=== PATIENT | female | born 1950 | race Caucasian/White ===

== ENCOUNTER 2022-09-06 12:14 | Emergency (ER) | payer MEDICARE ==
[~2022-09-06] VITALS: Ht 157.5 cm; Wt 96.4 kg
[~2022-09-06 12:14] MED LIST: PROC-8 PO
[2022-09-06 13:06] LABS: BASOPHILS # (AUTO) 0.1 X10'3 (0-0.2); BASOPHILS % (AUTO) 1.5 % (0-1); EOSINOPHILS # (AUTO) 0.3 X10'3 (0-0.9); EOSINOPHILS % (AUTO) 4.1 % (0-6); HEMATOCRIT 38.3 % (35.0-45.0); HEMOGLOBIN 12.9 g/dl (12.0-16.0); LYMPHOCYTES % (AUTO) 26.5 % (21-51); MEAN CORPUSCULAR HEMOGLOBIN 30.1 PG (27.0-31.0); MEAN CORPUSCULAR HGB CONC 33.8 g/dL (33.0-36.5); MEAN PLATELET VOLUME 8.6 FL (7.4-10.4); MONOCYTES # (AUTO) 0.6 X10'3 (0-0.9); NEUTROPHILS # (AUTO) 4.6 X10'3 (1.8-7.7); NEUTROPHILS % (AUTO) 59.9 % (42-75); PLATELET COUNT 199 X10'3 (140-440); RED CELL DISTRIBUTION WIDTH 13.8 % (11.5-14.5); WHITE BLOOD COUNT 7.7 X10'3 (4.5-11.0)
[2022-09-06 13:25] LABS: ALANINE AMINOTRANSFERASE 37 U/L (12-78); ALBUMIN 3.7 G/DL (3.4-5.0); ALBUMIN/GLOBULIN RATIO 1.2 (1.1-1.5); ALKALINE PHOSPHATASE 64 IU/L (46-116); ANION GAP 8 (8-16); ASPARTATE AMINO TRANSFERASE 14 U/L (10-37); BILIRUBIN,TOTAL 0.8 MG/DL (0.1-1.0); BLOOD UREA NITROGEN 43 MG/DL (7-18); BUN/CREATININE RATIO 37.4 (6.6-38.0); CALCIUM 9.4 MG/DL (8.5-10.1); CHLORIDE 103 MMOL/L (99-107); CREATININE 1.15 MG/DL (0.40-0.90); GLUCOSE 193 MG/DL (70-104); POTASSIUM 4.3 MMOL/L (3.5-5.1); SODIUM 138 MMOL/L (135-145); TOTAL CARBON DIOXIDE 26.9 MMOL/L (24-32); TOTAL PROTEIN 6.7 G/DL (6.4-8.2); eGFR 47 ML/MIN
[2022-09-06] MEDS ORDERED: CEPH-585 PO (14:29)
[2022-09-06] MEDS ORDERED: FURO-150 PO (14:29)
[2022-09-06] MEDS ORDERED: POTA8TAB69 PO (14:29)
[2022-09-06 15:07] VITALS: BP 161/75
--- NOTE | 2022-09-09 09:14 | NUR ---
NEW PRESCRIPTION FOR BACTRIM WAS WRITTEN PER DR. BARNETT, SINCE KEFLEX IS NOT EFFECTIVE FOR THE CULTURE/SENSITIVITY. PATIENT WAS NOTIFIED OF MEDICATION CHANGE AND [facility] CALLED FOR NEW PRESCRIPTION.
== END 2022-09-06 15:13 | disposition home or self-care (01) ==
LOC: ER 12:15
DX: R22.43 Localized swelling, mass and lump, lower limb, bilateral (principal); L03.116 Cellulitis of left lower limb; L03.115 Cellulitis of right lower limb; I87.2 Venous insufficiency (chronic) (peripheral); B35.1 Tinea unguium; E11.9 Type 2 diabetes mellitus without complications; Z88.5 Allergy status to narcotic agent
CPT/HCPCS: 36415; 80053; 83880; 85025; 87070; 87077; 87186; 99283

== ENCOUNTER 2025-03-15 11:57 | Inpatient (IN) | payer MEDICARE ==
[~2025-03-15] VITALS: Ht 157.5 cm; Wt 96.1 kg
[~2025-03-15 11:57] MED LIST changes: +AMLO10TA PO; +ATOR20TA66 PO; +LABE100T8 PO; +LATA2.5D14 EACHEYE; +LOSA50TA64 PO; +PRAM1TAB6 PO; +PRED5DRO23
--- NOTE | 2025-03-15 12:55 | ELECTROCARDIOGRAPH REPORT ---
[facility] Test Date: 2025-03-15 Test Time: 12:53:22 Pat Name: ZHEN WHITMORE Department: [facility] Patient ID: [facility]-[id number] Room: [place] [id number] Gender: F Health Information Provider: : 1950 Requested By: JOSHUA BURTON Order Number: [id number] Reading MD: Dr. Ronni Sheets Measurements Intervals [place] Rate: 70 P: 21 AK: 140 QRS: 62 QRSD: 93 T: 59 QT: 413 QTc: 446 Interpretive Statements Sinus rhythm Electronically Signed On 03-23-2025 20:07:[address] Ronni Sheets Please click the below link to view image of tracing.
--- NOTE | 2025-03-15 13:05 | Physician Documentation ---
History of Present Illness ~ Chief Complaint: Extremity Swelling Stated Complaint: LEG SWELLING Time Seen by MD: 13:02 Primary Medical Doctor: LEYLA OWENS This is a 74-year-old female with a history of CHF presenting with worsening lower and upper extremity swelling that has been ongoing for the past several weeks. Patient was sent here from primary care clinic due to this. Medication Reconciliation Allergies: Coded Allergies: naproxen (Verified Allergy, Unknown, 02/09/25) Scheduled Amlodipine Besylate (Amlodipine Besylate), 1 TAB PO DAILY, (Reported) Aspirin (Aspir 81), 1 TAB PO DAILY, (Reported) Atorvastatin Calcium* (Lipitor*), 1 TAB PO DAILY, (Reported) Brinzolamide/Brimonidine Tart (Simbrinza 1%-0.2% Eye Drop), 1 DROP EACHEYE Q12H, (Reported) Cefdinir* (Cefdinir*), 1 CAP PO Q12H Empagliflozin (Jardiance), 10 MG PO DAILY Ferrous Sulfate (Ferrous Sulfate), 1 TAB PO Q12H Furosemide (Furosemide), 40 TAB PO BID Insulin Glargine,Hum.rec.anlog* (Lantus*), 15 UNITS SQ HS Lactobacillus Rhamnosus (Culturelle), 1 CAP PO DAILY Linagliptin (Tradjenta), 1 TAB PO DAILY Pramipexole Di-Hcl (Pramipexole Dihydrochloride), 2 TAB PO HS, (Reported) Spironolactone (Spironolactone), 25 MG PO DAILY Tobramycin/Dexamethasone (Tobramycin-Dexameth Ophth Susp), 1 DROP EACHEYE HS, (Reported) Valsartan (Valsartan), 1 TAB PO DAILY, (Reported) Miscellaneous Medications Latanoprost (Latanoprost), EACHEYE, (Reported) Discontinued Medications Amlodipine Besylate (Amlodipine Besylate), 1 TAB PO DAILY Discontinued Reason: Other Atorvastatin Calcium (Atorvastatin Calcium), 20 MG PO DAILY Discontinued Reason: Other Chlorthalidone (Chlorthalidone), 1 TAB PO DAILY, (Reported) Labetalol Hcl (Labetalol Hcl), 100 MG PO BID Discontinued Reason: patient no longer taking Losartan Potassium (Losartan Potassium), 50 MG PO DAILY Discontinued Reason: Other Prednisolone Acetate/Pf (Prednisolone Acet 1% Eye Drop), (Reported) Discontinued Reason: Other Prochlorperazine Maleate (Compazine), 10 MG PO Q6H PRN for nausea/vomiting Discontinued Reason: patient no longer taking Past Medical History Past Medical History: Diabetes Past Surgical History: no surgical history, noncontributory Other Past Surgical History: Glaucoma surgeries Alcohol Use: None Drug Use: none Lives with: Spouse Lives In: Home Physical Exam Vital Signs: Temperature: 97.2, Source: Temporal, Heart Rate: 71, Respiratory Rate: 18, BP: 151/58, Pulse Oximetry: 94, Weight: 111.360 Progress Results/Orders Results/Orders Orders - YOMAIRA JARRELL MD Culture Blood (03/15/25 13:04) Page Hospitalist (03/15/25 15:38) Fill Out Med Reconciliation (03/15/25 15:38) Completed Orders - YOMAIRA JARRELL MD CK (03/15/25 13:04) CKMB (03/15/25 13:04) Pt Inr (03/15/25 13:04) PTT (03/15/25 13:04) MG (03/15/25 13:04) CMP (03/15/25 13:04) Lacticsepsis (03/15/25 13:04) Furosemide Inj (Lasix Inj) (03/15/25 14:15) Furosemide 40mg Inj (Lasix Inj) (03/15/25 14:15) Ua W/Microscopic, Cult If Ind (03/15/25 19:04) Vital Signs 03/15/25 03/15/25 03/15/25 12:19 13:12 14:50 Temp 97.2 Pulse 71 67 Resp 18 18 18 B/P (MAP) 151/58 149/67 (94) 164/73 (103) Pulse Ox 94 96 96 Laboratory Tests Test 03/15/25 12:45 03/15/25 13:23 03/15/25 15:00 Prothrombin Time 10.9 INR International Normalized Ratio 1.1 Activated Partial Thromboplast Time 30 Coagulation Comments Troponin I High Sensitivity 12 12 White Blood Count 8.1 Red Blood Count 3.59 L Hemoglobin 10.3 L Hematocrit 31.1 L Mean Corpuscular Volume 86.8 Mean Corpuscular Hemoglobin 28.8 Mean Corpuscular Hemoglobin Concent 33.2 Red Cell Distribution Width 15.1 H Platelet Count 315 Mean Platelet Volume 8.4 Neutrophils (%) (Auto) 65.7 Lymphocytes (%) (Auto) 15.8 L Monocytes (%) (Auto) 10.4 Eosinophils (%) (Auto) 5.2 Basophils (%) (Auto) 2.1 H Neutrophils # (Auto) 5.3 Lymphocytes # (Auto) 1.3 Monocytes # (Auto) 0.8 Eosinophils # (Auto) 0.4 Basophils # (Auto) 0.2 CBC Comment Sodium Level 140 Potassium Level 4.6 Chloride Level 109 H Carbon Dioxide Level 23.2 L Anion Gap 8 Blood Urea Nitrogen 43 H Creatinine 1.78 H Estimated GFR/1.73 m2 28 BUN/Creatinine Ratio 24.2 H Glucose Level 240 H Lactic Acid Level 0.9 Calcium Level 8.4 L Magnesium Level 2.1 Total Bilirubin 0.7 Aspartate Amino Transf (AST/SGOT) 25 Alanine Aminotransferase (ALT/SGPT) 61 Alkaline Phosphatase 100 Total Creatine Kinase 111 Creatine Kinase MB 2.9 Creatine Kinase MB Relative Index 2.6 H Pro-B-Type Natriuretic Peptide 1902 H Total Protein 6.2 L Albumin 2.9 L Globulin 3.3 Albumin/Globulin Ratio 0.9 L Procalcitonin < 0.05 Adrenocorticotropic Hormone 17.7 Chemistry Comments Troponin I High Sens Percent Delta 0 Troponin I Hi Sens Absolute Change 0 Microbiology Date/Time Source Procedure Growth Status 03/15/25 13:23 Blood Iv Start Blood Culture - Preliminary NO GROWTH AFTER 3 DAYS Resulted EKG/XRAY/CT/US/VASC/MRI EKG : Additional Comment EKG as interpreted by ED MD indicating normal sinus rhythm with a rate of 70 beats per minute, normal axis, no ischemia Chest X-Ray : Additional Comments CHEST RADIOGRAPH Indication: CP Technique: Single frontal view of the chest was obtained Comparison: None FINDINGS: Lines and Tubes: None Lungs: No focal consolidation. Mild interstitial prominence. Pleura: No effusion. No pneumothorax. Cardiomediastinal contours: Mild cardiomegaly with air Mild atherosclerotic calcification and uncoiling of the aorta. Bones: No acute osseous abnormality. IMPRESSION: Mild cardiomegaly with mild pulmonary vascular congestion. Medical Decision Making Additional Infomation 74-year-old female presenting with worsening fluid retention leading to anasarca due to worsening renal failure, as well as congestive heart failure. Add itionally, she is hyper glycemic in the setting of poorly controlled diabetes mellitus. The patient is noncompliant with her medication's and would benefit from admission to hospital. Patient was given 40 mg of IV furosemide in the ED. She was admitted to the hospitalist team. Departure Disposition: ADMITTED INPATIENT Admitted to Inpatient Unit: to hospitalist Admission Level of Care: Med/Surg with Tele Impression: Primary Impression: Anasarca Additional Impressions: CHF (congestive heart failure) Chronic renal failure Uncontrolled diabetes mellitus Hyperglycemia Referrals: NO PRIMARY CARE PROVIDER (PCP) Prescriptions Lactobacillus Rhamnosus (Culturelle) 10 Billion Cell Capsule 1 CAP PO DAILY for 30 Days, #30 CAP 0 Refills Prov: ORTEGA GRANADOSV, RES 03/18/25 Ferrous Sulfate (Ferrous Sulfate) 324 Mg (65 Mg Iron) Tablet.dr 1 TAB PO Q12H for 30 Days, #60 TAB 0 Refills Prov: ORTEGA GRANADOSV, RES 03/18/25 Linagliptin (Tradjenta) 5 Mg Tablet 1 TAB PO DAILY for 30 Days, #30 TAB 0 Refills Prov: ORTEGA GRANADOSV, RES 03/18/25 Insulin Glargine,Hum.rec.anlog* (Lantus*) 100 Unit/1 Ml Vial 15 UNITS SQ HS for 30 Days, #1 VIAL Prov: SHANE GRANADOS, RES 03/18/25 Spironolactone (Spironolactone) 25 Mg Tablet 25 MG PO DAILY for 30 Days, #30 TAB Prov: ORTEGA GRANADOSV, RES 03/18/25 Empagliflozin (Jardiance) 10 Mg Tablet 10 MG PO DAILY for 30 Days, #30 TAB Prov: LILAAPAEVGENY AparicioSHANE, RES 03/18/25 Cefdinir* (Cefdinir*) 300 Mg Capsule 1 CAP PO Q12H for 30 Days, #60 CAP Prov: ORTEGA GRANADOSV, RES 03/18/25 Furosemide (Furosemide) 20 Mg Tablet 40 TAB PO BID for 30 Days, #120 TAB 0 Refills Prov: ORTEGA GRANADOSV, RES 03/18/25 Signature Scribe Signature: 1 Attestation: 1 YOMAIRA JARRELL MD Mar 15, 2025 13:05
--- NOTE | 2025-03-15 13:16 | RADIOLOGY REPORT ---
CHEST RADIOGRAPH Indication: CP Technique: Single frontal view of the chest was obtained Comparison: None FINDINGS: Lines and Tubes: None Lungs: No focal consolidation. Mild interstitial prominence. Pleura: No effusion. No pneumothorax. Cardiomediastinal contours: Mild cardiomegaly with air Mild atherosclerotic calcification and uncoili ng of the aorta. Bones: No acute osseous abnormality. IMPRESSION: Mild cardiomegaly with mild pulmonary vascular congestion.
[2025-03-15 13:29] LABS: APTT 30 SECONDS (22-32); INR 1.1 INR
[2025-03-15 13:38] LABS: MEAN PLATELET VOLUME 8.4 FL (7.4-10.4); RED CELL DISTRIBUTION WIDTH 15.1 % (11.5-14.5)
[2025-03-15 13:47] LABS: CREATININE 1.78 MG/DL (0.40-0.90); TOTAL CARBON DIOXIDE 23.2 MMOL/L (24-32); eCRCL 23 ML/MIN; eGFR 28 ML/MIN
[2025-03-15 13:58] LABS: CREATINE KINASE MB 2.9 ng/ml (0.3-3.6); PRO BRAIN NATRIURETIC PEPTIDE 1902 PG/ML (0-125)
[2025-03-15] MEDS ORDERED: ATOR20TA PO (14:14)
[2025-03-15] MEDS ORDERED: ASPI-611 PO (14:14)
[2025-03-15] MEDS ORDERED: BRIN8DRO2 EACHEYE (14:14)
[2025-03-15] MEDS ORDERED: AMLO10TA13 PO (14:14)
[2025-03-15] MEDS ORDERED: CHLO25TA10 PO (14:14)
[2025-03-15] MEDS ORDERED: furosemide 10 MG/1 ML 10ml inj IV ONE (14:15)
[2025-03-15] MEDS ORDERED: TOBR5DRO7 EACHEYE (14:17)
[2025-03-15] MEDS ORDERED: VALS320T17 PO (14:18)
[2025-03-15] MEDS ORDERED: potassium Cl 40MEQ/1/2NS 520ml 520 ML IV PRN (17:15)
[2025-03-15] MEDS ORDERED: ondansetron/PF 4mg/2ml inj IV PRN (17:15)
[2025-03-15] MEDS ORDERED: mag hydrox/Alum hydrox/simeth 30ml oral suspension PO PRN (17:15)
[2025-03-15] MEDS ORDERED: magnesium Cl slow-release 64mg tablet PO PRN (17:15)
[2025-03-15] MEDS ORDERED: magnesium sulf-water 2g/50mL 50 ML IV PRN (17:15)
[2025-03-15] MEDS ORDERED: magnesium hydroxide 30ml (MOM) UD suspension PO PRN (17:15)
[2025-03-15] MEDS ORDERED: magnesium sulf-water 4G/100mL 100 ML IV PRN (17:15)
[2025-03-15] MEDS ORDERED: potassium Cl 20 mEq SR tablet PO PRN ×2 (17:15)
[2025-03-15] MEDS ORDERED: glucagon, human recombinant 1mg kit SUBCUT PRN (17:25)
[2025-03-15] MEDS ORDERED: dextrose 50%-water 50ml dispensing syringe IV PRN ×2 (17:25)
[2025-03-15] MEDS ORDERED: DEXTROSE 15 GM of carb/4 tabs (each vial/BOTTLE has 4 tablets) PO PRN ×2 (17:25)
[2025-03-15] MEDS: furosemide 10 MG/1 ML 10ml inj IV SCH (17:25)
--- NOTE | 2025-03-15 18:10 | RADIOLOGY REPORT ---
Indication: anasarca and renal; abnormalities Technique: CT axial images of the abdomen and pelvis are obtained with intravenous contrast. Coronal and sagittal reformats were obtained. Radiation Dose Information: CTDI volume is 34 mGy. Dose-length product is 1890 mGy*cm Comparison: None FINDINGS: The lung bases small bilateral pleural effusions, [id number]. Bibasilar atelectasis/cons olidation. Adrenal glands, spleen, pancreas and liver unremarkable in shape. Cholelithiasis. The kidneys demonstrate no hydronephrosis. Punctate nonobstructing right renal calculi up to 3 mm an d left renal calculi up to 2 mm. Stomach is moderately distended. Small bowel loops are normal in caliber. Colonic diverticular disease. Moderate volume stool in the colon. No secondary signs for appendicitis . Mesenteric edema. Abdominal aortic atherosclerotic disease. Bladder is distended. Presacral edema. Soft tissue edema / anasarca. [id number]-xb-oaldzcfr thoracolumbar degenerative disc disease. IMPRESSION: Soft tissue edema / anasarca. Small bilateral pleural effusions, [id number]-[id number]-exgf-right. Bibasilar atelectasis/consolidation. Punctate nonobstructing bilateral renal calculi. Cholelithiasis. Other findings as described.
--- NOTE | 2025-03-15 18:13 | HISTORY AND PHYSICAL-Residence ---
History & Physical Providers to CC Resident Creating Document: SHANE GRANADOS RES ~ History of Present Illness Primary Medical Doctor: LEYLA Reason for Admit\Complaint: Lower bilateral extremity edema History of Present Illness The patient is an elderly female with a complex medical history including chronic bilateral lower extremity edema, type 2 diabetes mellitus, chronic kidney disease, and cerebrovascular disease, who presents with progressive swelling of her lower and upper extremities and increasing shortness of breath. She reports that her lower extremity edema has been present for over two years but has significantly worsened in recent months, now extending up to her knees and involving her upper extremities as well. The legs are warm, erythematous, and have developed blistering. She notes a weight gain of approximately 30 pounds over the last 90 days. Her home nurse advised her to consult her primary care physician, who recommended inpatient diuresis due to concern for volume overload. She additionally reports worsening dyspnea over the past three weeks, particularly on exertion. She endorses orthopnea and paroxysmal nocturnal dyspnea but denies chest pain or fever. Despite the extent of her symptoms, she has not been formally diagnosed with heart failure. She follows with pbx technician Dr. Jaramillo and is scheduled for a right carotid artery stent placement. She was previously hospitalized one month ago for evaluation of acute kidney injury and stroke-like symptoms. During that admission, she was evaluated by outpatient science professor Dr. Foley, and was followed outpatient who noted improvement in renal function. Laboratory data on admission shows a hemoglobin of 10.3 (down from 12.4), BUN 43, creatinine 1.78, glucose 240, and A1c 9.9. BNP has improved from 3000 to 1902. A chest X-ray demonstrates cardiomegaly and vascular congestion. A recent echocardiogram revealed preserved ejection fraction (EF 6570%). Lower extremity arterial Doppler revealed significant atherosclerotic disease with 75% stenosis in the right common femoral artery and bilateral involvement of superficial femoral and popliteal segments. Carotid duplex ultrasound showed 70% stenosis of the right internal carotid artery, and MRI/MRA of the head showed diminished flow in the right MCA and bilateral SEASONAL RECRUITER territories. On exam, she has severe, non-pitting bilateral lower extremity edema with evidence of weeping fluid and blistering, suggesting advanced venous stasis or lymphedema, possibly with superimposed cellulitis. PCP: Cardiology: Dr. Jaramillo Marketing Programs Specialist: Have an appointment on April 04 Nephrology: Dr. Foley Lives at home with her Ambulates independently Allergies: Coded Allergies: naproxen (Verified Allergy, Unknown, 02/09/25) Home Medications Home Medications Active Reported Valsartan 320 Mg Tablet 1 Tab PO DAILY Tobramycin-Dexameth Ophth Susp (Tobramycin/Dexamethasone) 0.3 %-0.1 % Drops.susp 1 Drop EACHEYE HS Chlorthalidone 25 Mg Tablet 1 Tab PO DAILY Aspir 81 (Aspirin) 81 Mg Tablet.dr 1 Tab PO DAILY Amlodipine Besylate 10 Mg Tablet 1 Tab PO DAILY Simbrinza 1%-0.2% Eye Drop (Brinzolamide/Brimonidine Tart) 1 %-0.2 % Drops.susp 1 Drop EACHEYE Q12H Lipitor* (Atorvastatin Calcium) 20 Mg Tablet 1 Tab PO DAILY Latanoprost 0.005 % Drops EACHEYE Pramipexole Dihydrochloride (Pramipexole Di-Hcl) 1 Mg Tablet 2 Tab PO HS Past Medical History Past Medical History Coronary artery disease Carotid artery stenosis Asthma Chronic lymphedema Possible congestive heart failure Peripheral artery disease Pyelonephritis Septic abortions Preeclampsia Glaucoma Past Surgical History Surgical History Comment Foot surgery 60 years ago Tonsillectomy Nine eye surgeries for glaucoma Past Social History Social History Comment Denied smoking and illicit drug abuse, very occasional alcohol approximately 1-2 drinks a year Smoking: Non-Smoker Alcohol Use: None Drug Use: None Lives with: Spouse Lives In: Home ROS ROS Reviewed in full. All negative except for pertinent positive HPI. Exam Vitals: Vital Signs Date Time Temp Pulse Resp B/P (MAP) Pulse Ox O2 Delivery O2 Flow Rate FiO2 03/15/25 17:18 77 18 163/82 (109) 93 03/15/25 12:19 97.2 General: Awake , alert, and oriented x4, resting comfortably in the bed, in no acute distress HEENT: Atraumatic, normocephalic, EOMI, anicteric sclera ; pink conjunctiva Neck: Trachea midline. Supple, full range of motion, no JVD Cardiac: Regular rhythm, regular rate with no murmurs all over the precordium. Respiratory: Equal breath sounds bilaterally, crackles at the basilar regions Gastrointestinal: Abdomen symmetric, non-distended, soft, non-tender, normal bowel sounds x4 quadrant, normoactive, no hepatosplenomegaly Musculoskeletal: Right and left lower extremities: Significant nonpitting pedal edema extending up to knee joint, severe erythema, oozing fluid and blisters also a wound below the right greater toe Significant enema of the upper extremities Neurological: Speech is clear, alert, and oriented x 4. No motor or sensory deficit, deep tendon reflexes normal, cerebellar intact. Cranial nerves II-XII intact. Skin: Warm and dry Diagnostic Data Last Recorded Lab Results: 03/15/25 1323 03/15/25 1323 Diagnostic Data: Laboratory Tests Test 03/15/25 12:45 Prothrombin Time 10.9 SECONDS (9.0-12.0) INR International Normalized Ratio 1.1 INR Activated Partial Thromboplast Time 30 SECONDS (22-32) Coagulation Comments Advance Care Planning Advanced Care plannin - 30 Minutes Additional Plan 1. Volume Overload with Severe bilateral lower extremity lymphedema Shortness of breath Possible Venous insufficiency Chronic progressive edema now involving both lower and upper extremities with recent 30 lb weight gain. Exam shows severe non-pitting edema with weeping fluid, likely due to volume overload and possible lymphedema or venous insufficiency. Associated with worsening dyspnea, orthopnea, and PND. Plan: IV furosemide bolus 80 mg given in the ED Ordered IV Lasix 60 mg b.i.d. from tomorrow, monitor blood pressures Transition to drip if no improvement further Venous ultrasound ordered for ruling out venous insufficiency Strict I/O, daily weights Monitor renal function, electrolytes Fluid restriction, low-sodium diet Elevation of legs, compression wraps (after ruling out active cellulitis) Wound care consult 2. Bilateral Lower Extremity Cellulitis Lower extremities are warm, erythematous, with weeping skin and blisteringconcerning for superimposed cellulitis Plan: Started IV cefazolin 1 g q8h Monitor WBC, temp, and skin changes daily Procalcitonin ordered Blood cultures ordered Wound care consult 3. Shortness of Breath and Orthopnea CHF vs Volume Overload Possible acute exacerbation of congestive heart failure with preserved ejection fraction NYHA Class III, AHA/ACC Stage C Likely diastolic dysfunction with preserved EF (6570%), elevated BNP (trending down), and pulmonary congestion on CXR Plan: Continue IV diuresis Added Jardiance 10 mg daily, we will initiate spironolactone based on electrolytes tomorrow Monitor oxygen status and respiratory exam 4. Chronic Kidney Disease with Recent PATRICK Creatinine 1.78, improved from previous PATRICK Plan: Daily BMP, monitor for pre-renal worsening with diuresis Avoid nephrotoxic drugs Dr. Foley to see the patient tomorrow 5. Type 2 Diabetes Mellitus Poorly Controlled A1c 9.9, glucose 240 Plan: Basal-bolus insulin regimen with Lantus 25 units and Humalog 15 units Monitor blood glucose QID Adjust based on inpatient needs 6. Normocytic Normochromic Anemia Likely Chronic Disease or Volume Dilutional Hb 10.3 (down from 12.4), likely multifactorial from CKD, volume overload Plan: Monitor CBC daily Iron panel, B12, folate pending No transfusion unless Hb <7 or symptomatic 7. Peripheral Arterial Disease (PAD) Arterial US shows 75% stenosis in right common femoral and bilateral disease Plan: Continue aspirin, statin Vascular follow-up for management tomorrow Monitor for ischemic symptoms Foot care education 8. 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 Hypertension Continue home antihypertensives amlodipine 10 mg po daily, chlorthalidone 25 mg p.o. daily, valsartan 320 mg p.o. daily Monitor blood pressure closely during volume removal Adjust based on volume status and renal function 11. Glaucoma: Continue home medications 12. Severe Obesity Possibel GLENN Outpatient follow up Code Status: Full code DVT Prophylaxis: Heparin SQ Line/tubes: P IV Nutrition: Carb controlled heart healthy diet PT: Ordered Prognosis: Guarded Disposition: Admit to PCU with the tele monitoring Shane Granados MD Internal Medicine Resident, PGY-2 Date of Service: Mar 15, 2025 Billing Provider: NEGRA KERN MD,SHANE, RES Mar 15, 2025 18:13
[2025-03-15 19:22] LABS: LEUKOCYTE ESTERASE ,URINE SMALL (Neg); NITRITES, URINE NEGATIVE (Neg); OCCULT BLOOD,URINE TRACE-INTACT (Neg)
[2025-03-15 19:32] LABS: UA COLLECTION TYPE NON-SPECIFIED
[2025-03-15 19:33] LABS: SQUAMOUS EPITHELIAL CELL,UR FEW /LPF (FEW)
[2025-03-15 19:34] LABS: WBC CLUMPS,URINE FEW /HPF (NEGATIVE)
[2025-03-15 19:42] LABS: % IRON SATURATION 11 % (11-46)
[2025-03-15] MEDS: ceFAZolin 2gm/dext,iso 50mL 50 ML IV SCH (19:42)
[2025-03-15] MEDS: docusate sod 100mg capsule PO SCH (20:00)
[2025-03-15] MEDS: K and/or MAG REPLACEMENT MC SCH (20:00)
[2025-03-15] MEDS: INSULIN LISPRO 100 UNIT/ML INSULN.PEN MULTI-DOSE SQ SCH ×2 (20:10→20:36)
[2025-03-15] MEDS: heparin, porcine 5000 units/ml vial SQ SCH (20:23)
[2025-03-15] MEDS: insulin glargine (Lantus) pen - multi-dose SQ SCH (20:39)
[2025-03-15 21:00] VITALS: RESP 24; O2SAT 93
[2025-03-15] MEDS: brimonidine 0.2% 5 ML ophthalmic drops EACHEYE SCH (21:22)
[2025-03-15] MEDS: dorzolamide 2% ophthalmic drops 10ml EACHEYE SCH (21:22)
[2025-03-15 22:00] VITALS: BP 155/72; PULSE 84; RESP 20; TEMP 97.1; O2SAT 92
[2025-03-16 02:00] VITALS: BP 172/67; PULSE 64; RESP 18; TEMP 97.7; O2SAT 96
[2025-03-16 05:55] LABS: MEAN PLATELET VOLUME 8.2 FL (7.4-10.4); RED CELL DISTRIBUTION WIDTH 15.3 % (11.5-14.5)
[2025-03-16 06:06] LABS: CHOL/HDL RATIO 1.8 (0.00-4.99); CREATININE 1.77 MG/DL (0.40-0.90); LDL CHOLESTEROL 32 MG/DL (50-100); TOTAL CARBON DIOXIDE 24.3 MMOL/L (24-32); eCRCL 23 ML/MIN; eGFR 28 ML/MIN
[2025-03-16 07:00] VITALS: BP 150/69; PULSE 72; RESP 18; TEMP 97.1; O2SAT 96
[2025-03-16 08:00] VITALS: RESP 24; O2SAT 93
[2025-03-16] MEDS: EMPAGLIFLOZIN 10 MG TABLET PO SCH (08:06)
[2025-03-16] MEDS: aspirin 81mg, enteric-coated 1 TAB TABLET.DR PO SCH (08:07)
[2025-03-16] MEDS: furosemide 10 MG/1 ML 10ml inj IV SCH (08:24)
--- NOTE | 2025-03-16 10:26 | CONSULTATION REPORT - RESIDENT ---
Consult Providers to CC Resident Creating Document: ROBERTMARCOSKIM RES History of Present Illness Primary Medical Doctor: Shayy Mejia Reason for Admit\\Complaint: Anasarca History of Present Illness This is a 74-year-old female patient with a past medical history of morbid obesity, hypothyroidism, hypertension, heart failure with preserved ejection fraction, right carotid artery stenosis (>70%) and symptomatic, and bilateral peripheral arterial disease presented to the hospital due to worsening anasarca. She was advised by her primary care provider to come into the hospital for inpatient diuresis. The patient was seen in the hospital about a month ago. That hospitalization was initiated secondary to the fact that she took paov-vie-rctmgfr weight loss pills called "Burnjauro" due to which she developed increased urinary frequency, leading to increased weakness and suffering a mechanical fall. She was admitted to the hospital and treated for PATRICK prerenal in etiology. She follows up with Dr. Foley outpatient, her renal function had remained at baseline. She has been suffering with bilateral lower extremity edema likely secondary to lymphedema over the last two years but progressive anasarca has worsened over the last one month. This is also associated with increasing fatigue. She reports no symptoms of diarrhea, vomiting, loss of appetite, frothing of the urine or hematuria. Allergies: Coded Allergies: naproxen (Verified Allergy, Unknown, 02/09/25) Home Medications Home Medications Active Reported Valsartan 320 Mg Tablet 1 Tab PO DAILY Tobramycin-Dexameth Ophth Susp (Tobramycin/Dexamethasone) 0.3 %-0.1 % Drops.susp 1 Drop EACHEYE HS Chlorthalidone 25 Mg Tablet 1 Tab PO DAILY Aspir 81 (Aspirin) 81 Mg Tablet.dr 1 Tab PO DAILY Amlodipine Besylate 10 Mg Tablet 1 Tab PO DAILY Simbrinza 1%-0.2% Eye Drop (Brinzolamide/Brimonidine Tart) 1 %-0.2 % Drops.susp 1 Drop EACHEYE Q12H Lipitor* (Atorvastatin Calcium) 20 Mg Tablet 1 Tab PO DAILY Latanoprost 0.005 % Drops EACHEYE Pramipexole Dihydrochloride (Pramipexole Di-Hcl) 1 Mg Tablet 2 Tab PO HS Past Medical History Past Medical History Bilateral lower extremity lymphedema Right carotid artery stenosis Hypothyroidism Hypertension CKD stage 4 Heart failure with preserved ejection fraction Past Surgical History Surgical History Comment Foot surgery 60 years ago Tonsillectomy Nine eye surgeries for glaucoma Past Social History Social History Comment Denies alcohol use, illicit drug abuse or smoking. Lives at home with the . Recently unable to ambulate on her own and requires assistance. ROS ROS As stated above in the HPI, otherwise all systems are reviewed and negative. Exam Vitals: Vital Signs Date Time Temp Pulse Resp B/P (MAP) Pulse Ox O2 Delivery O2 Flow Rate FiO2 03/16/25 08:07 72 03/16/25 02:00 97.7 18 172/67 (102) 96 Room Air General: General: Awake and Alert, no acute distress. Tired appearing HEENT: Conjunctiva pale, Sclera clear, Mucus Membranes moist. Resp: Unlabored. Lungs clear to auscultation bilaterally. Heart: Regular Rate and rhythm, normal S1 and S2 without murmur, rub or gallop. Abdomen: Soft and non tender no organomegaly Extremities: 4+ bilateral upper and lower extremity edema Skin: Warm and Dry. Excoriations of the bilateral lower extremities, erythematous suffering lower extremities extending from the ankle to the calf Diagnostic Data Last Recorded Lab Results: 03/16/2552303/16/25 05 Diagnostic Data: Laboratory Tests Test 03/15/25 12:45 Prothrombin Time 10.9 SECONDS (9.0-12.0) INR International Normalized Ratio 1.1 INR Activated Partial Thromboplast Time 30 SECONDS (22-32) Coagulation Comments Additional Plan 1. Anasarca: Possibly secondary to hypoalbuminemia Urine protein on 02/09/2025 was 3+. Spot urine protein at this time was trace Follow spot urine studies for UBC ID issues, we will consider 24 hour urine studies based on the above Nutrition consulted. Nepro protein shakes ordered. Heart failure secondary to preserved EF can also be considered; but normal RV function echocardiogram ProBNP downtrending. But, patient responding to diuretic therapy Continue IV Lasix, increased today to 80 mg b.i.d. Recommend discontinuing chlorthalidone Strict I&O monitoring. Negative fluid balance of 5 L yesterday Additionally, follow TSH, free T4 and ACTH levels 2. Right carotid artery stenosis: Greater than 70%, symptomatic Plan for RCA stenting by Dr. Jaramillo Continue to follow outpatient 3. Type 2 diabetes mellitus: ? Newly diagnosed Poorly controlled; A1c 9.9 No diabetic medications on board at home Jardiance added by primary team Continue insulin regimen in-hospital Consider discharging on appropriate regimen 4. CKD stage 4: Baseline 1.7-1.8 Closely monitor BMP Expect increase in creatinine with IV Lasix 5. Normocytic and normochromic anemia: Iron studies in line of anemia of chronic disease Continue ferrous sulfate supplements Follow up B12 levels Continue to monitor 6. Hypertension: On home medications of amlodipine, chlorthalidone and valsartan Hold chlorthalidone at this time due to ongoing high dose of Lasix Continue the rest of the medications Goal between 130-140 mmHg SBP Lines: PIV Code status: Full code Diet: Carb controlled and renal diet Kim Gimenez PGY2, Internal medicine resident Date of Service: Mar 16, 2025 Billing Provider: ARJUN FOLEY III, DEEPANJALI, RES Mar 16, 2025 10:26
[2025-03-16] MEDS: NUT.TX.IMP.RENAL FXN,LAC-REDUC (Nepro) 237 ML VANILLA PO SCH (13:00)
--- NOTE | 2025-03-16 14:55 | PROGRESS NOTE- Residence ---
Progress Note - Resident Providers to CC Resident Creating Document: SHANE GRANADOS RES ~ Antibiotic Timeout Antibiotic Ordered?: Yes Subjective Patient was seen and examined at bedside, no acute overnight symptoms. Erythema and bilateral pedal edema have improved since yesterday. Objective Vital Signs Date Time Temp Pulse Resp B/P (MAP) Pulse Ox O2 Delivery O2 Flow Rate FiO2 03/16/25 08:07 72 03/16/25 08:00 24 93 Room Air 03/16/25 07:00 97.1 150/69 (96) Result Diagram: 03/16/25 0524 03/16/25 0524 Awake , alert, and oriented x4, resting comfortably in the bed, in no acute distress HEENT: Atraumatic, normocephalic, EOMI, anicteric sclera ; pink conjunctiva Neck: Trachea midline. Supple, full range of motion, no JVD Cardiac: Regular rhythm, regular rate with no murmurs all over the precordium. Respiratory: Equal breath sounds bilaterally, crackles at the basilar regions Gastrointestinal: Abdomen symmetric, non-distended, soft, non-tender, normal bowel sounds x4 quadrant, normoactive, no hepatosplenomegaly Musculoskeletal: Right and left lower extremities: Significant for + pitting pedal edema today extending up to knee joint, severe erythema, oozing fluid and blisters also a wound below the right greater toe Significant enema of the upper extremities Neurological: Speech is clear, alert, and oriented x 4. No motor or sensory deficit, deep tendon reflexes normal, cerebellar intact. Cranial nerves II-XII intact. Skin: Warm and dry Coagulation Studies Laboratory Tests Test 03/15/25 12:45 Prothrombin Time 10.9 SECONDS (9.0-12.0) INR International Normalized Ratio 1.1 INR Activated Partial Thromboplast Time 30 SECONDS (22-32) Coagulation Comments Advance Care Planning Advanced Care plannin - 30 Minutes Assessment Assessment 74-year-old female, is currently admitted for evaluation of acute exacerbation of congestive heart failure with reduced ejection fraction and chronic lymphedema with superimposed cellulitis. Plan Plan 1. Volume Overload with Severe bilateral lower extremity lymphedema Shortness of breath Possible Venous insufficiency Chronic progressive edema now involving both lower and upper extremities with recent 30 lb weight gain. Exam shows severe non-pitting edema with weeping fluid, likely due to volume overload and possible lymphedema or venous insufficiency. Associated with worsening dyspnea, orthopnea, and PND. Plan: IV furosemide bolus 80 mg given in the ED Ordered IV Lasix 60 mg b.i.d. from tomorrow, monitor blood pressures Transition to drip if no improvement further Venous ultrasound ordered for ruling out venous insufficiency Strict I/O, daily weights Monitor renal function, electrolytes Fluid restriction, low-sodium diet Elevation of legs, compression wraps (after ruling out active cellulitis) Wound care consult 03/16/2025: Cardiology was consulted, awaiting recommendations Nephrology was consulted today, recommended a furosemide 80 mg IV b.i.d., to be continued Continue low-sodium diet, elevation of leg, fluid restriction, wound care Awaiting venous ultrasound 2. Bilateral Lower Extremity Cellulitis Lower extremities are warm, erythematous, with weeping skin and blisteringconcerning for superimposed cellulitis Plan: Started IV cefazolin 1 g q8h Monitor WBC, temp, and skin changes daily Procalcitonin ordered Blood cultures ordered Wound care consult 03/16/2025: Blood cultures negative until now Wound care to be continued Continue cefazolin IV 2 g q.8h WBC count and procalcitonin within normal limits 3. Shortness of Breath and Orthopnea CHF vs Volume Overload Possible acute exacerbation of congestive heart failure with preserved ejection fraction NYHA Class III, AHA/ACC Stage C Likely diastolic dysfunction with preserved EF (6570%), elevated BNP (trending down), and pulmonary congestion on CXR Plan: Continue IV diuresis Added Jardiance 10 mg daily, we will initiate spironolactone based on electrolytes tomorrow Monitor oxygen status and respiratory exam 4. Chronic Kidney Disease with Recent PATRICK CKD stage 4: Creatinine 1.78, improved from previous PATRICK Plan: Daily BMP, monitor for pre-renal worsening with diuresis Avoid nephrotoxic drugs Dr. Foley to see the patient tomorrow 03/16/2025: Creatinine stable at 1.77 Spot urine protein: Trace Dr. Foley has seen the patient today, recommended IV furosemide 80 mg b.i.d. 5. Type 2 Diabetes Mellitus Poorly Controlled A1c 9.9, glucose 240 Plan: Basal-bolus insulin regimen with Lantus 25 units and Humalog 15 units Monitor blood glucose QID Adjust based on inpatient needs 6. Normocytic Normochromic Anemia dimorphic Anemia for chronic disease in a iron-deficiency Hb 10.3 (down from 12.4), likely multifactorial from CKD, volume overload Plan: Monitor CBC daily Iron panel, B12, folate pending No transfusion unless Hb <7 or symptomatic 03/16/2025: Initiated IV iron replacement, pending B12 7. Peripheral Arterial Disease (PAD) Arterial US shows 75% stenosis in right common femoral and bilateral disease Plan: Continue aspirin, statin Vascular follow-up for management tomorrow Monitor for ischemic symptoms Foot care education 03/16/2025: Consulted Dr. Avitia today, awaiting recommendations 8. 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 Hypertension Continue home antihypertensives amlodipine 10 mg po daily, chlorthalidone 25 mg p.o. daily, losartan 100 mg p.o. daily Monitor blood pressure closely during volume removal Adjust based on volume status and renal function 11. Glaucoma: Continue home medications 12. Severe Obesity Possibel GLENN Outpatient follow up 13. UTI: Urinalysis positive for small leukocyte esterase and 5-10 WBCs Continue cefazolin as above, urine cultures grew Gram-negative rods, awaiting final report Code Status: Full code DVT Prophylaxis: Heparin SQ Line/tubes: P IV Nutrition: Carb controlled heart healthy diet PT: Ordered Prognosis: Guarded Disposition: Continue wound care, awaiting Cardiology and a surgery recommendations Shane Granados MD Internal Medicine Resident, PGY-2 Date of Service: Mar 16, 2025 Billing Provider: NEGRA KERN MD, GAURAV, RES Mar 16, 2025 14:55
--- NOTE | 2025-03-16 16:51 | CONSULTATION REPORT ---
History of Present Illness Providers to CC CC: FILIPE JARAMILLO MD ~ Reason for Admit\Admit Dx: Cardiology Consultation Refering MD: Hospitalist/Residency service History of Present Illness 74 year-old female with PMH significant for morbid obesity, DM2, CKD, CVA, carotid stenosis, HTN, HLD, hypothyroidism, HFpEF. She is established with Dr. Jaramillo's cardiology service. She was hospitalized last month with PATRICK secondary to taking OTC crash diet pills, her A1C was also 10% at that time. She has a history of lymphedema in bilateral LE x2 years. Elevated proBNP suggestive of HFpEF exacerbation, however could be secondary to CKD. TTE at last visit demonstrated LVEF 65-70%, normal RV size and function. She states her edema is not painful, and has improved vastly since arrival to ER. She does endorse dyspnea with minimal exertion and orthopnea. She denies neuro symptoms, specifically L side weakness, dysphagia, facial droop, etc. Allergies: Coded Allergies: naproxen (Verified Allergy, Unknown, 02/09/25) Home Medications Home Medications Active Reported Valsartan 320 Mg Tablet 1 Tab PO DAILY Tobramycin-Dexameth Ophth Susp (Tobramycin/Dexamethasone) 0.3 %-0.1 % Drops.susp 1 Drop EACHEYE HS Chlorthalidone 25 Mg Tablet 1 Tab PO DAILY Aspir 81 (Aspirin) 81 Mg Tablet.dr 1 Tab PO DAILY Amlodipine Besylate 10 Mg Tablet 1 Tab PO DAILY Simbrinza 1%-0.2% Eye Drop (Brinzolamide/Brimonidine Tart) 1 %-0.2 % Drops.susp 1 Drop EACHEYE Q12H Lipitor* (Atorvastatin Calcium) 20 Mg Tablet 1 Tab PO DAILY Latanoprost 0.005 % Drops EACHEYE Pramipexole Dihydrochloride (Pramipexole Di-Hcl) 1 Mg Tablet 2 Tab PO HS Past Medical History Medical History Comment Bilateral lower extremity lymphedema Right carotid artery stenosis DM2 Hypothyroidism Hypertension CKD stage 4 Heart failure with preserved ejection fraction Past Surgical History Surgical History Comment No prior CV or lung procedures. Past Family History Family History Comment Non-contributory Past Social History Social History Comment Denies alcohol use, illicit drug abuse or smoking. Lives at home with the . Recently unable to ambulate on her own and requires assistance. Physical Exam Last Vital Signs Recorded: Temperature: 97.1, Source: Oral, Heart Rate: 72, Respiratory Rate: 24, BP: 150/69, Pulse Oximetry: 93, Weight: 111.360 General Appearance: alert, no apparent distress EENT: PERRL/EOMI Neck: normal inspection, carotid bruit Respiratory: crackles Chest: no accessory muscle use Respiratory decreased air movement, bi-basilar crackles. Cardiovascular significant bilateral upper extremity edema. Lower extremities with 4+ pitting edema, erythema noted from just below the knees extending to ankles bilaterally. There is a small wound on the dorsal aspect of the R big toe. The extremities are no longer weeping, as previously noted, and there is some wrinkling of the skin on shins where the edema has started to subside. Peripheral Pulses Pedal pulses difficult to palpate due to edema. ++ signs of adequate perfusion. Gastrointestinal: non-tender Skin: warm/dry Skin As described above. Review of Systems All Other Systems at this time: Reviewed and Negative ROS ROS complete and negative other than that specified in HPI. Results EKG EKG NSR, 70bpm Echocardiogram Echocardiogram TTE from 02/09/25 Conclusion Normal LV size and wall thickness. Overall systolic function is normal. LVEF is 65-70%. RV is normal size and function. The left atrium size is normal. Trileaflet AV appears mildly sclerotic without stenosis. No insufficiency. Mild MV annular calcification without stenosis. Trace regurgitation. TV appears structurally normal with trace eccentric regurgitation towards septal wall. Normal pericardium. No effusion. X-ray X-ray CXR IMPRESSION: Mild cardiomegaly with mild pulmonary vascular congestion. Other Other Abdomen/pelvis CT IMPRESSION: Soft tissue edema / anasarca. Small bilateral pleural effusions, [id number]. Bibasilar atelectasis/consolidation. Punctate nonobstructing bilateral renal calculi. Cholelithiasis. Carotid Ultrasound 02/09/2025 Impression: 1. Greater than 70% stenosis of the right internal carotid arterial system. 2. 50-69% stenosis of the left internal carotid arterial system. 3. Antegrade flow within bilateral vertebral arteries. 4. High resistant waveforms of the right vertebral and left proximal common carotid arteries may reflect more proximal stenosis. Diagram Lab Result Diagram: 03/16/25 0524 03/16/2524 Assessment/Plan Additional Plan 74 year-old female with PMH significant for morbid obesity, DM2, CKD, CVA, carotid stenosis, HTN, HLD, hypothyroidism, HFpEF. Severe, bilateral upper and lower extremity edema. Acute on Chronic Diastolic Heart Failure ProBNP 1901. Severe edema BLE, BUE. NYHA class III dyspnea. Orthopnea. Severe volume overload, possibly due to PATRICK/CKD. -Discontinue Chlorthalidone. -Continue diuresis with IV Lasix, dosing per Nephrology. -Continue Jardiance 10mg QD. -Continue Losartan 100mg QD. -Start Carvedilol 6.25mg BID. Stenosis of Right Internal Carotid Artery No s/s of acute exacerbation. Neuro assessment normal. Denies weakness L side. -Plan to arrange for R carotid stent as an outpatient after she achieves euvolemia, and remains stable post discharge. -Continue ASA 81mg QD. -Continue Atorvastatin 20mg QD. I have discussed above with supervising physician Dr. Duncan Jaramillo who agrees with this plan. Supervising MD Supervising Physician: JASON Haque [facility] Mar 16, 2025 16:51
[2025-03-16 18:00] VITALS: BP 172/70; PULSE 70; RESP 12; TEMP 98; O2SAT 94
[2025-03-16] MEDS: carvedilol 6.25mg tablet PO SCH (19:41)
[2025-03-16 20:00] VITALS: RESP 12; O2SAT 94
[2025-03-16 22:00] VITALS: BP 143/55; PULSE 68; RESP 19; TEMP 97.6; O2SAT 92
[2025-03-17] VITALS (7 sets, daily range): BP systolic 127–174; BP diastolic 47–67; PULSE 54–65; RESP 14–18; TEMP 97–98.1; O2SAT 94–96
[2025-03-17 06:03] LABS: MEAN PLATELET VOLUME 8.5 FL (7.4-10.4)
[2025-03-17 06:05] LABS: RED CELL DISTRIBUTION WIDTH 14.8 % (11.5-14.5)
[2025-03-17 06:16] LABS: CREATININE 1.94 MG/DL (0.40-0.90); TOTAL CARBON DIOXIDE 29.1 MMOL/L (24-32); eCRCL 21 ML/MIN; eGFR 25 ML/MIN
[2025-03-17] MEDS: iron sucrose complex injection 300 MG in normal saline 250ml IV soln 250 ML IV SCH (08:05)
--- NOTE | 2025-03-17 08:32 | PROGRESS NOTE- Residence ---
Progress Note - Resident Providers to CC Resident Creating Document: AXEL GIMENEZ, CHARLINE ~ Central Line/PICC still needed: No Vaca-Non Protocol Vaca Indications Met/Not Met: F/C Indications Not Met Antibiotic Timeout Antibiotic Ordered?: Yes Subjective Patient seen at bedside; no acute complaints. She lost about 10 kg over the last one day. Bilateral pedal edema has also improved. She put out about 7 L + 4 L over the last two days. She did not like the protein shakes as they were too sweet for her and did not consuming them. Objective Vital Signs Date Time Temp Pulse Resp B/P (MAP) Pulse Ox O2 Delivery O2 Flow Rate FiO2 03/17/25 07:13 62 03/17/25 07:02 97.0 18 171/58 (95) 95 Room Air Result Diagram: 03/17/25 0534 03/17/25 0534 General: Awake and Alert, no acute distress. Tired appearing HEENT: Conjunctiva pale, Sclera clear, Mucus Membranes moist. Resp: Unlabored. Lungs clear to auscultation bilaterally. Heart: Regular Rate and rhythm, normal S1 and S2 without murmur, rub or gallop. Abdomen: Soft and non tender no organomegaly Extremities: 4+ bilateral upper and lower extremity edema (Mild improvement from yesterday) Skin: Warm and Dry. Excoriations of the bilateral lower extremities, erythematous suffering lower extremities extending from the ankle to the calf Coagulation Studies Laboratory Tests Test 03/15/25 12:45 Prothrombin Time 10.9 SECONDS (9.0-12.0) INR International Normalized Ratio 1.1 INR Activated Partial Thromboplast Time 30 SECONDS (22-32) Coagulation Comments Assessment Assessment 74-year-old female, is currently admitted for evaluation of acute exacerbation of congestive heart failure with reduced ejection fraction and chronic lymphedema with superimposed cellulitis. Plan Plan 1. Anasarca: Possibly secondary to hypoalbuminemia Urine protein on 02/09/2025 was 3+. Spot urine protein at this time was trace Awaiting spot urine studies. TSH and T4 within normal limits; ruled out inaccurately controlled hypothyroidism Nutrition consulted. Awaiting recommendations Continue IV Lasix at 80 mg b.i.d.. Responding well. Home discharge with 40 mg IV Lasix b.i.d. Strict I&O monitoring 2. Right carotid artery stenosis: Greater than 70%, symptomatic Plan for outpatient RCA stenting 3. Type 2 diabetes mellitus: ? Newly diagnosed Poorly controlled; A1c 9.9 No diabetic medications on board at home Jardiance added by primary team Continue insulin regimen in-hospital Discharge planning with appropriate regimen 4. CKD stage 4: Baseline 1.7-1.8 Closely monitor BMP Expect increase in creatinine with IV Lasix Outpatient follow up with Dr. Foley after discharge 5. Normocytic and normochromic anemia: Iron studies in line of anemia of chronic disease Continue ferrous sulfate supplements B12 within normal limits Continue to monitor 6. Hypertension: On home medications of amlodipine, chlorthalidone and valsartan Hold chlorthalidone at this time due to ongoing high dose of Lasix Continue the rest of the medications Goal between 130-140 mmHg SBP Lines: PIV Code status: Full code Diet: Carb controlled and renal diet xAel Gimenez PGY3, Internal medicine resident Date of Service: Mar 17, 2025 Billing Provider: ARJUN FOLEY III, DEEPANJALI, RES Mar 17, 2025 08:32
[2025-03-17] MEDS: CefTRIAXone 2gm/D5W 50ml BAG 50 ML IV SCH (10:29)
--- NOTE | 2025-03-17 12:40 | VASCULAR REPORT ---
Bilateral Upper Extremity Venous Duplex Clinical History: Pain Comparison: VASC VL VENOUS on DOS: 02/09/25 Findings: Duplex Doppler evaluation of the venous systems of the right and left lower neck and upper extremitie s including color Doppler and spectral/pulsed waveform analysis was performed. RIGHT SIDE: The internal jugular vein demonstrates appropriate compressibility and waveform variability. The subclavian vein is patent on color Doppler evaluation without intraluminal thrombus and demonstra izabel waveform variability. The visualized portion of the brachiocephalic vein is patent on color Doppler evaluation without intr aluminal thrombus and demonstrates waveform variability. The axillary vein demonstrates appropriate compressibility and waveform variability. The brachial veins demonstrate appropriate compressibility and patency on Doppler evaluation. The basilic vein demonstrates appropriate compressibility and patency on Doppler evaluation. The cephalic vein demonstrates appropriate compressibility and patency on Doppler evaluation. LEFT SIDE: The internal jugular vein demonstrates appropriate compressibility and waveform variability. The subclavian vein is patent on color Doppler evaluation without intraluminal thrombus and demonstra izabel waveform variability. The visualized portion of the brachiocephalic vein is patent on color Doppler evaluation without intr aluminal thrombus and demonstrates waveform variability. The axillary vein demonstrates appropriate compressibility and waveform variability. The brachial veins demonstrate appropriate compressibility and patency on Doppler evaluation. The basilic vein demonstrates appropriate compressibility and patency on Doppler evaluation. The cephalic vein demonstrates appropriate compressibility and patency on Doppler evaluation. Impression: No venous thrombus identified in the right or left upper extremity vessels evaluated above. If clinical concern/symptoms persist or worsen, short-interval follow-up study is suggested.
--- NOTE | 2025-03-17 12:41 | VASCULAR REPORT ---
Bilateral lower extremity venous duplex Clinical History: Pain Comparison: VASC VL VENOUS on DOS: 02/09/25 Technique: Duplex Doppler evaluation of the deep venous systems of both lower extremities from the common femora l veins to the popliteal veins including color Doppler and spectral/pulsed waveform analysis was perf ormed. Findings: RIGHT SIDE: The common femoral vein demonstrates appropriate compressibility and waveform variability. There is compressibility/patency of the great saphenous vein at the proximal thigh. The femoral vein demonstrates appropriate compressibility and waveform variability. The deep femoral vein demonstrates appropriate compressibility and waveform variability. The popliteal vein demonstrates appropriate compressibility and waveform variability. There is normal compressibility at the tibioperoneal trunk. LEFT SIDE: The common femoral vein demonstrates appropriate compressibility and waveform variability. There is compressibility/patency of the great saphenous vein at the proximal thigh. The femoral vein demonstrates appropriate compressibility and waveform variability. The deep femoral vein demonstrates appropriate compressibility and waveform variability. The popliteal vein demonstrates appropriate compressibility and waveform variability. There is normal compressibility at the tibioperoneal trunk. Impression: No right or left femoropopliteal venous thrombosis.
--- NOTE | 2025-03-17 17:10 | PROGRESS NOTE ---
Progress Note - Angio Providers to CC ~ Angio Progress Note: Asked to consider CO2 angiography but due to body habitus, the resolution of CO2 may actually be inferior to an attempt at MRA runoff if patient is able to tolerate this first. D/W Dr Dennis. NIYAH CHEEK MD Mar 17, 2025 17:10
--- NOTE | 2025-03-17 18:34 | PROGRESS NOTE- Residence ---
Progress Note - Resident Providers to CC Resident Creating Document: SHANE GRANADOS RES ~ Antibiotic Timeout Antibiotic Ordered?: Yes Subjective Patient seen and examined at bedside.. Bilateral pedal edema and erythema significantly improved. She diuresed of approximately 7 L overnight. No acute overnight symptoms. Objective Vital Signs Date Time Temp Pulse Resp B/P (MAP) Pulse Ox O2 Delivery O2 Flow Rate FiO2 03/17/25 15:00 97.3 55 16 140/53 (82) 94 Room Air Result Diagram: 03/17/25 0534 03/17/25 0534 Awake , alert, and oriented x4, resting comfortably in the bed, in no acute distress HEENT: Atraumatic, normocephalic, EOMI, anicteric sclera ; pink conjunctiva Neck: Trachea midline. Supple, full range of motion, no JVD Cardiac: Regular rhythm, regular rate with no murmurs all over the precordium. Respiratory: Equal breath sounds bilaterally, crackles at the basilar regions Gastrointestinal: Abdomen symmetric, non-distended, soft, non-tender, normal bowel sounds x4 quadrant, normoactive, no hepatosplenomegaly Musculoskeletal: Improving edema and erythema since the day of admission Neurological: Speech is clear, alert, and oriented x 4. No motor or sensory deficit, deep tendon reflexes normal, cerebellar intact. Cranial nerves II-XII intact. Skin: Warm and dry Coagulation Studies Laboratory Tests Test 03/15/25 12:45 Prothrombin Time 10.9 SECONDS (9.0-12.0) INR International Normalized Ratio 1.1 INR Activated Partial Thromboplast Time 30 SECONDS (22-32) Coagulation Comments Advance Care Planning Advanced Care plannin - 30 Minutes Assessment Assessment 74-year-old female, is currently admitted for evaluation of acute exacerbation of congestive heart failure with reduced ejection fraction and chronic lymphedema with superimposed cellulitis. Plan Plan 1. Volume Overload with Severe bilateral lower extremity lymphedema Shortness of breath Possible Venous insufficiency Chronic progressive edema now involving both lower and upper extremities with recent 30 lb weight gain. Exam shows severe non-pitting edema with weeping fluid, likely due to volume overload and possible lymphedema or venous insufficiency. Associated with worsening dyspnea, orthopnea, and PND. Plan: IV furosemide bolus 80 mg given in the ED Ordered IV Lasix 60 mg b.i.d. from tomorrow, monitor blood pressures Transition to drip if no improvement further Venous ultrasound ordered for ruling out venous insufficiency Strict I/O, daily weights Monitor renal function, electrolytes Fluid restriction, low-sodium diet Elevation of legs, compression wraps (after ruling out active cellulitis) Wound care consult 03/16/2025: Cardiology was consulted, awaiting recommendations Nephrology was consulted today, recommended a furosemide 80 mg IV b.i.d., to be continued Continue low-sodium diet, elevation of leg, fluid restriction, wound care Awaiting venous ultrasound 03/17/2025: Venous ultrasound negative for DVT Cardiology was consulted, recommended outpatient stent placement Continue furosemide 40 mg IV b.i.d., monitor creatinine levels Patient diuresed approximately 7 L overnight 2. Bilateral Lower Extremity Cellulitis Lower extremities are warm, erythematous, with weeping skin and blisteringconcerning for superimposed cellulitis Plan: Started IV cefazolin 1 g q8h Monitor WBC, temp, and skin changes daily Procalcitonin ordered Blood cultures ordered Wound care consult 03/16/2025: Blood cultures negative until now Wound care to be continued Continue cefazolin IV 2 g q.8h WBC count and procalcitonin within normal limits 03/17/2025: Urine cultures grew E coli resistant to cefazolin, hence initiated ceftriaxone 1 g IV daily 3. Shortness of Breath and Orthopnea CHF vs Volume Overload Possible acute exacerbation of congestive heart failure with preserved ejection fraction NYHA Class III, AHA/ACC Stage C Likely diastolic dysfunction with preserved EF (6570%), elevated BNP (trending down), and pulmonary congestion on CXR Plan: Continue IV diuresis Continue Jardiance 10 mg daily, and spironolactone Monitor oxygen status and respiratory exam 4. Chronic Kidney Disease with Recent PATRICK CKD stage 4: Creatinine 1.78, improved from previous PATRICK Plan: Daily BMP, monitor for pre-renal worsening with diuresis Avoid nephrotoxic drugs Dr. Foley to see the patient tomorrow 03/16/2025: Creatinine stable at 1.77 Spot urine protein: Trace Dr. Foley has seen the patient today, recommended IV furosemide 80 mg b.i.d. 03/17/2025: Creatinine increased to 1.94 today, nephrology on board Continue IV furosemide 40 mg b.i.d., monitor creatinine level Pending urine lytes 5. Type 2 Diabetes Mellitus Poorly Controlled A1c 9.9, glucose 240 Plan: Basal-bolus insulin regimen with Lantus 25 units and Humalog 15 units Monitor blood glucose QID Adjust based on inpatient needs 6. Normocytic Normochromic Anemia dimorphic Anemia for chronic disease in a iron-deficiency Hb 10.3 (down from 12.4), likely multifactorial from CKD, volume overload Plan: Monitor CBC daily Iron panel, B12, folate pending No transfusion unless Hb <7 or symptomatic 03/16/2025: Initiated IV iron replacement, B12 normal 7. Peripheral Arterial Disease (PAD) Arterial US shows 75% stenosis in right common femoral and bilateral disease Plan: Continue aspirin, statin Vascular follow-up for management tomorrow Monitor for ischemic symptoms Foot care education 03/16/2025: Consulted Dr. Avitia today, awaiting recommendations 03/17/2025: Dr. Avitia recommended lower extremity angiogram with CO2, however Dr. Mendoza, IR was consulted and recommended the patient would benefit from MRA Awaiting Dr. Avitia's recommendation 8. 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 cortisol levels 10. Hypertension Continue home antihypertensives amlodipine 10 mg po daily, losartan 100 mg p.o. daily Discontinued chlorthalidone Monitor blood pressure closely during volume removal Adjust based on volume status and renal function 11. Glaucoma: Continue home medications 12. Severe Obesity Possibel GLENN Outpatient follow up 13. UTI: Urinalysis positive for small leukocyte esterase and 5-10 WBCs Urine cultures grew E coli, resistant to cefazolin, initiated ceftriaxone 1 g IV daily Code Status: Full code DVT Prophylaxis: Heparin SQ Line/tubes: P IV Nutrition: Carb controlled heart healthy diet PT: Ordered Prognosis: Guarded Disposition: Continue wound care, awaiting Dr. Hanson recommendations Shane Granados MD Internal Medicine Resident, PGY-2 Date of Service: Mar 17, 2025 Billing Provider: NEGRA KERN MD, GAURAV, RES Mar 17, 2025 18:34
--- NOTE | 2025-03-17 22:34 | PROGRESS NOTE ---
Progress Note ID Providers to CC ~ Progress Note Progress Note: pt seem-findings consistent with assymptomatic pad-pt to followup with Dr. Clint TAVAREZ,TEE More MD Mar 17, 2025 22:34
[2025-03-18 06:00] VITALS: BP 118/64; PULSE 57; RESP 20; TEMP 97.1; O2SAT 95
[2025-03-18 06:35] LABS: RED CELL DISTRIBUTION WIDTH 15.0 % (11.5-14.5)
[2025-03-18 06:39] LABS: MEAN PLATELET VOLUME 8.3 FL (7.4-10.4)
[2025-03-18 06:51] LABS: CREATININE 2.14 MG/DL (0.40-0.90); TOTAL CARBON DIOXIDE 31.2 MMOL/L (24-32); eCRCL 19 ML/MIN; eGFR 23 ML/MIN
[2025-03-18 08:00] VITALS: BP_SYST 118; BP_SYST 124; BP_DIAS 64; BP_DIAS 66; PULSE 55; PULSE 57; RESP 20; O2SAT 95
[2025-03-18] MEDS: furosemide 10 MG/1 ML 10ml inj IV SCH (08:00)
--- NOTE | 2025-03-18 08:46 | PROGRESS NOTE- Residence ---
Progress Note - Resident Providers to CC Resident Creating Document: KIM HANEY, CHARLINE ~ Central Line/PICC still needed: No Vaca-Non Protocol Vaca Indications Met/Not Met: F/C Indications Not Met Antibiotic Timeout Antibiotic Ordered?: Yes Subjective Hospital course- This is a 74-year-old female patient with a past history of CKD stage 4, baseline creatinine of 1.7 presents to the hospital with complaints of worsening anasarca. Approximately about a month ago, she was admitted the hospital for a prerenal acute kidney injury after she took [id number] weight loss pills that we will likely diuretics. This time again, she presents with anasarca but with a baseline renal creatinine. She was diuresed with 80 mg initially of Lasix and respond to it and then later was increased to 80 mg b.i.d. of Lasix for the last two days starting on 1624. Since increasing the Lasix, she has had significant amount of diuresis by putting out about 7-8 L of fluid every day. Over the last three days she lost about 30 kgs of weight as per bed weights. Her edema has also been significantly improving. She follows with Dr. Foley outpatient. She lives at home with the . Ambulates on her own but has some weakness. Has a home health nurse who comes in to check on her. Patient has a flat affect since her admission, this is not a new finding. Her thyroid and ACTH levels are normal. We are currently waiting for Physical therapy to evaluate the patient and for discharge planning. Plan is to send her on 40 mg b.i.d. of Lasix and follow up in clinic to further decrease the dose later. On another note also, the patient was found to have a very low albumin and history revealed 3+ proteinuria on 02/09/2025. A full proteinuria serology has been ordered today. 03/18/2025- Decrease the Lasix to 40 mg b.i.d. today. She has had about 8 L of output yesterday and lost about 6 kg of weight since yesterday. Findings discussed with the primary team and the nursing staff. Recommend to remove the PureWick and encourage ambulation. Objective Vital Signs Date Time Temp Pulse Resp B/P (MAP) Pulse Ox O2 Delivery O2 Flow Rate FiO2 03/17/25 20:00 17 95 Room Air 03/17/25 20:00 60 145/52 (83) 54 155/56 (89) 03/17/25 15:00 97.3 Result Diagram: 03/18/2560603/18/25606 General: Awake and Alert, no acute distress. Tired appearing HEENT: Conjunctiva pale, Sclera clear, Mucus Membranes moist. Resp: Unlabored. Lungs clear to auscultation bilaterally. Heart: Regular Rate and rhythm, normal S1 and S2 without murmur, rub or gallop. Abdomen: Soft and non tender no organomegaly Extremities: 4+ bilateral upper and lower extremity edema (Mild improvement from yesterday) Skin: Warm and Dry. Excoriations of the bilateral lower extremities, erythematous suffering lower extremities extending from the ankle to the calf Coagulation Studies Laboratory Tests Test 03/15/25 12:45 Prothrombin Time 10.9 SECONDS (9.0-12.0) INR International Normalized Ratio 1.1 INR Activated Partial Thromboplast Time 30 SECONDS (22-32) Coagulation Comments Assessment Assessment 74-year-old female, is currently admitted for evaluation of acute exacerbation of congestive heart failure with reduced ejection fraction and chronic lymphedema with superimposed cellulitis. Plan Plan 1. Anasarca: Possibly secondary to hypoalbuminemia Proteinuria serologies ordered Decrease IV Lasix to 40 mg b.i.d. Outpatient discharge with the same dosage Strict I&O monitoring. Negative fluid balance of 8 L yesterday TSH, T4 and ACTH levels all within normal limits 2. Right carotid artery stenosis: Greater than 70%, symptomatic Plan for RCA stenting by Dr. Jaramillo Continue to follow outpatient 3. Type 2 diabetes mellitus: ? Newly diagnosed Poorly controlled; A1c 9.9 No diabetic medications on board at home Jardiance added by primary team Continue insulin regimen in-hospital Consider discharging on appropriate regimen 4. CKD stage 4: Baseline 1.7-1.8 Closely monitor BMP Expect increase in creatinine with IV Lasix 5. Normocytic and normochromic anemia: Iron studies in line of anemia of chronic disease Continue ferrous sulfate supplements B12 levels within normal limits Continue to monitor 6. Hypertension: On home medications of amlodipine, chlorthalidone and valsartan Hold chlorthalidone at this time due to ongoing high dose of Lasix; hold at discharge as well. Continue the rest of the medications Goal between 130-140 mmHg SBP Lines: PIV Code status: Full code Diet: Carb controlled and renal diet Deepanjali Vedantam PGY3, Internal medicine resident Date of Service: Mar 18, 2025 Billing Provider: ARJUN FOLEY III DO KIM HANEY, RES Mar 18, 2025 08:46 ARJUN FOLEY III, DO Mar 18, 2025 15:52
[2025-03-18 11:00] VITALS: BP 141/45; PULSE 56; RESP 20; TEMP 97.9; O2SAT 95
[2025-03-18] MEDS ORDERED: EMPA10TA PO (12:14)
[2025-03-18] MEDS ORDERED: FURO20TA4 PO (12:14)
[2025-03-18] MEDS ORDERED: FERR324T4 PO (12:14)
[2025-03-18] MEDS ORDERED: LINA5TAB4 PO (12:14)
[2025-03-18] MEDS ORDERED: CEFD300C3 PO (12:14)
[2025-03-18] MEDS ORDERED: SPIR25TA5 PO (12:14)
[2025-03-18] MEDS ORDERED: LANTUS SQ (12:14)
[2025-03-18] MEDS ORDERED: LACT1CAP26 PO (12:16)
--- NOTE | 2025-03-18 17:12 | DISCHARGE SUMMARY-Residence ---
Discharge Summary Providers to CC Resident Creating Document: SHANE GRANADOS, RES ~ Discharge Summary Admission Diagnosis: CHF [facility] Course DATE OF ADMISSION: 03/15/2025 DATE OF DISCHARGE: 03/18/2025 Discharge Diagnosis\Comment: 1. Volume Overload with Severe bilateral lower extremity lymphedema Shortness of breath Possible Venous insufficiency 2. Bilateral Lower Extremity Cellulitis 3. Shortness of Breath and Orthopnea CHF vs Volume Overload Possible acute exacerbation of congestive heart failure with preserved ejection fraction NYHA Class III, AHA/ACC Stage C 4. Chronic Kidney Disease with Recent PATRICK CKD stage 4 5. Type 2 Diabetes Mellitus Poorly Controlled 6. Normocytic Normochromic Anemia dimorphic Anemia for chronic disease in a iron-deficiency 7. Peripheral Arterial Disease (PAD) 8. Carotid Artery Disease and Cerebrovascular Risk 9. Cushingoid Features 10. Hypertension 11. Glaucoma 12. Severe Obesity Possibel GLENN 13. UTI secondary to E coli Operations\Procedures: None Consultants: Vascular surgery Cardiology Nephrology Complications: None Condition on DC: Stable New Medications: Cefdinir* (Cefdinir*) 300 Mg Capsule 1 CAP PO Q12H for 30 Days, #60 CAP Ferrous Sulfate (Ferrous Sulfate) 324 Mg (65 Mg Iron) Tablet.dr 1 TAB PO Q12H for 30 Days, #60 TAB 0 Refills Furosemide (Furosemide) 20 Mg Tablet 40 TAB PO BID for 30 Days, #120 TAB 0 Refills Insulin Glargine,Hum.rec.anlog* (Lantus*) 100 Unit/1 Ml Vial 15 UNITS SQ HS for 30 Days, #1 VIAL Lactobacillus Rhamnosus (Culturelle) 10 Billion Cell Capsule 1 CAP PO DAILY for 30 Days, #30 CAP 0 Refills Linagliptin (Tradjenta) 5 Mg Tablet 1 TAB PO DAILY for 30 Days, #30 TAB 0 Refills Spironolactone (Spironolactone) 25 Mg Tablet 25 MG PO DAILY for 30 Days, #30 TAB Empagliflozin (Jardiance) 10 Mg Tablet 10 MG PO DAILY for 30 Days, #30 TAB Continued Medications: Amlodipine Besylate (Amlodipine Besylate) 10 Mg Tablet 1 TAB PO DAILY Aspirin (Aspir 81) 81 Mg Tablet.dr 1 TAB PO DAILY, TAB Atorvastatin Calcium* (Lipitor*) 20 Mg Tablet 1 TAB PO DAILY, TAB Brinzolamide/Brimonidine Tart (Simbrinza 1%-0.2% Eye Drop) 1 %-0.2 % Drops.susp 1 DROP EACHEYE Q12H, ML 0 Refills Latanoprost (Latanoprost) 0.005 % Drops EACHEYE Pramipexole Di-Hcl (Pramipexole Dihydrochloride) 1 Mg Tablet 2 TAB PO HS Tobramycin/Dexamethasone (Tobramycin-Dexameth Ophth Susp) 0.3 %-0.1 % Drops.susp 1 DROP EACHEYE HS Valsartan (Valsartan) 320 Mg Tablet 1 TAB PO DAILY, TAB 0 Refills Discontinued Medications: Chlorthalidone (Chlorthalidone) 25 Mg Tablet 1 TAB PO DAILY Discharge Summary: HPI as per admitting physician: The patient is an elderly female with a complex medical history including chronic bilateral lower extremity edema, type 2 diabetes mellitus, chronic kidney disease, and cerebrovascular disease, who presents with progressive swelling of her lower and upper extremities and increasing shortness of breath. She reports that her lower extremity edema has been present for over two years but has significantly worsened in recent months, now extending up to her knees and involving her upper extremities as well. The legs are warm, erythematous, and have developed blistering. She notes a weight gain of approximately 30 pounds over the last 90 days. Her home nurse advised her to consult her primary care physician, who recommended inpatient diuresis due to concern for volume overload. She additionally reports worsening dyspnea over the past three weeks, particularly on exertion. She endorses orthopnea and paroxysmal nocturnal dysp gabbie but denies chest pain or fever. Despite the extent of her symptoms, she has not been formally diagnosed with heart failure. She follows with obstetrical nurse Dr. Jaramillo and is scheduled for a right carotid artery stent placement. She was previously hospitalized one month ago for evaluation of acute kidney injury and stroke-like symptoms. During that admission, she was evaluated by outpatient hotel service supervisor Dr. Foley, and was followed outpatient who noted improvement in renal function. Laboratory data on admission shows a hemoglobin of 10.3 (down from 12.4), BUN 43, creatinine 1.78, glucose 240, and A1c 9.9. BNP has improved from 3000 to 1902. A chest X-ray demonstrates cardiomegaly and vascular congestion. A recent echocardiogram revealed preserved ejection fraction (EF 6570%). Lower extremity arterial Doppler revealed significant atherosclerotic disease with 75% stenosis in the right common femoral artery and bilateral involvement of superficial femoral and popliteal segments. Carotid duplex ultrasound showed 70% stenosis of the right internal carotid artery, and MRI/MRA of the head showed diminished flow in the right MCA and bilateral PIG MACHINE CRANE OPERATOR territories. On exam, she has severe, non-pitting bilateral lower extremity edema with evidence of weeping fluid and blistering, suggesting advanced venous stasis or lymphedema, possibly with superimposed cellulitis. PCP: Cardiology: Dr. Jaramillo Vice President Integrated: Have an appointment on April 04 Nephrology: Dr. Foley Lives at home with her Ambulates independently Hospital course: This is a 74-year-old female admitted for acute exacerbation of congestive heart failure with reduced ejection fraction in the setting of chronic lymphedema complicated by superimposed bilateral lower extremity cellu litis. On admission, she presented with profound bilateral lower extremity edema, erythema, and weeping skin changes, along with worsening shortness of breath, orthopnea, and a 30-pound weight gain. Clinical and imaging evaluations supported volume overload and possible venous insufficiency, with signs of pulmonary congestion. She was initially managed with IV furosemide 80 mg, later transitioned to 60 mg IV b.i.d., and subsequently adjusted to 40 mg IV b.i.d. based on renal function. She diuresed approximately 7 liters overnight, resulting in marked improvement in edema, erythema, and respiratory symptoms. Venous duplex ultrasound was negative for DVT. Cardiology recommended outpatient coronary stenting. Nephrology was consulted for CKD stage 4 with superimposed PATRICK (creatinine peaked at 1.94), and IV diuresis was continued cautiously with close electrolyte and renal monitoring. Bilateral lower extremity cellulitis was initially treated with IV cefazolin; however, urine cultures grew E. coli resistant to cefazolin, prompting escalation to ceftriaxone 1 g IV daily. Wound care was initiated and remains ongoing. Her pulmonary symptoms, attributed to CHF and fluid overload, improved significantly with diuresis. She remained stable on room air. Her heart failure regimen included IV diuretics, spironolactone, Jardiance, a low-sodium diet, and fluid restriction. The patient also has poorly controlled type 2 diabetes mellitus (A1c 9.9), managed with a basal-bolus insulin regimen during admission. Anemia workup revealed normocytic normochromic anemia likely related to chronic kidney disease and iron deficiency; IV iron replacement was initiated. No transfusion was required. She was also noted to have significant peripheral arterial disease, with arterial ultrasound showing 75% stenosis in the right common femoral artery and bilateral disease. Vascular surgery (Dr. Avitia) was consulted and rec ommended outpatient RISK AND INSURANCE MANAGER stenting. Dr. Mendoza from Interventional Radiology was also consulted and had recommended MRA over CO? angiogram. The patient is stable for outpatient follow-up regarding revascularization. Additionally, she has carotid artery disease with 70% right ICA stenosis and evidence of decreased flow in MCA/PIG MACHINE CRANE OPERATOR territories. Carotid stenting is planned on an outpatient basis. Cushingoid features (facial rounding, central obesity) were noted without a history of steroid use; ACTH was normal and AM cortisol is pending to assess for possible endogenous cortisol excess. Her hypertension was managed with amlodipine and losartan, with discontinuation of chlorthalidone due to PATRICK. Her UTI due to resistant E. coli was concurrently treated with ceftriaxone. She remains a full code. DVT prophylaxis is being provided with subcutaneous heparin. Nutrition has been managed with a carb ohydrate-controlled, heart-healthy diet, and PT has been involved in her mobilization and strength training. Throughout her hospital stay, the patient remained hemodynamically stable, alert, and interactive. Her symptoms and exam findings have steadily improved. Disposition planning is underway, with a goal of transfer to a post-acute rehab facility pending wound care progression and final vascular surgery recommendations. Imaging Summary: Chest X-ray (on admission): Pulmonary vascular congestion Bibasilar infiltrates suggestive of pulmonary edema Venous Duplex Ultrasound (Lower Extremities): No evidence of deep vein thrombosis (DVT) Chronic venous insufficiency not excluded Arterial Doppler Ultrasound (Lower Extremities): ~75% stenosis of the right common femoral artery Bilateral peripheral arterial disease Carotid Duplex Ultrasound: ~70% stenosis of the right internal carotid artery Decreased flow in right MCA/PIG MACHINE CRANE OPERATOR territory Abdominal Imaging (if applicable): [If any abdominal ultrasound or CT was done, list findings] MRA (Pending): Recommended by IR (Dr. Mendoza) for better assessment of lower extremity arterial disease Outpatient Physical examination today: Awake , alert, and oriented x4, resting comfortably in the bed, in no acute distress HEENT: Atraumatic, normocephalic, EOMI, anicteric sclera ; pink conjunctiva Neck: Trachea midline. Supple, full range of motion, no JVD Cardiac: Regular rhythm, regular rate with no murmurs all over the precordium. Respiratory: Equal breath sounds bilaterally, crackles at the basilar regions Gastrointestinal: Abdomen symmetric, non-distended, soft, non-tender, normal bowel sounds x4 quadrant, normoactive, no hepatosplenomegaly Musculoskeletal: Improving edema and erythema since the day of admission Neurological: Speech is clear, alert, and oriented x 4. No motor or sensory deficit, deep tendon reflexes normal, cerebellar intact. Cranial nerves II-XII intact. Skin: Warm and dry Vital Signs Date Time Temp Pulse Resp B/P (MAP) Pulse Ox O2 Delivery O2 Flow Rate FiO2 03/18/25 08:41 59 03/18/25 08:00 20 95 Room Air 03/18/25 08:00 118/64 (82) 124/66 (85) 03/17/25 15:00 97.3 Laboratory Tests Test 03/16/25 17:56 03/16/25 20:42 03/17/25 05:34 03/17/25 12:30 Glucometer 149 mg/dl 197 mg/dl 120 mg/dl White Blood Count 6.8 X10'3 Red Blood Count 3.63 X10'6 Hemoglobin 10.4 g/dl Hematocrit 31.1 % Mean Corpuscular Volume 85.5 FL Mean Corpuscular Hemoglobin 28.6 PG Mean Corpuscular Hemoglobin Concent 33.5 g/dL Red Cell Distribution Width 14.8 % Platelet Count 335 X10'3 Mean Platelet Volume 8.5 FL Neutrophils (%) (Auto) 57.7 % Lymphocytes (%) (Auto) 24.7 % Monocytes (%) (Auto) 10.3 % Eosinophils (%) (Auto) 5.3 % Basophils (%) (Auto) 2.0 % Neutrophils # (Auto) 3.9 X10'3 Lymphocytes # (Auto) 1.7 X10'3 Monocytes # (Auto) 0.7 X10'3 Eosinophils # (Auto) 0.4 X10'3 Basophils # (Auto) 0.1 X10'3 CBC Comment Sodium Level 137 MMOL/L Potassium Level 3.9 MMOL/L Chloride Level 103 MMOL/L Carbon Dioxide Level 29.1 MMOL/L Anion Gap 5 Blood Urea Nitrogen 47 MG/DL Creatinine 1.94 MG/DL Estimated GFR/1.73 m2 25 ML/MIN BUN/Creatinine Ratio 24.2 Glucose Level 153 MG/DL Calcium Level 8.8 MG/DL Magnesium Level 2.1 MG/DL Total Bilirubin 0.5 MG/DL Aspartate Amino Transf (AST/SGOT) 16 U/L Alanine Aminotransferase (ALT/SGPT) 24 U/L Alkaline Phosphatase 88 IU/L Total Protein 6.0 G/DL Albumin 2.5 G/DL Globulin 3.5 G/DL Albumin/Globulin Ratio 0.7 Chemistry Comments Test 03/17/25 17:32 03/17/25 20:43 03/18/25 06:07 03/18/25 08:14 Glucometer 105 mg/dl 220 mg/dl 86 mg/dl White Blood Count 6.7 X10'3 Red Blood Count 3.73 X10'6 Hemoglobin 10.7 g/dl Hematocrit 31.8 % Mean Corpuscular Volume 85.3 FL Mean Corpuscular Hemoglobin 28.6 PG Mean Corpuscular Hemoglobin Concent 33.6 g/dL Red Cell Distribution Width 15.0 % Platelet Count 336 X10'3 Mean Platelet Volume 8.3 FL Neutrophils (%) (Auto) 56.4 % Lymphocytes (%) (Auto) 23.6 % Monocytes (%) (Auto) 12.6 % Eosinophils (%) (Auto) 5.0 % Basophils (%) (Auto) 2.4 % Neutrophils # (Auto) 3.8 X10'3 Lymphocytes # (Auto) 1.6 X10'3 Monocytes # (Auto) 0.8 X10'3 Eosinophils # (Auto) 0.3 X10'3 Basophils # (Auto) 0.2 X10'3 CBC Comment Sodium Level 139 MMOL/L Potassium Level 3.6 MMOL/L Chloride Level 102 MMOL/L Carbon Dioxide Level 31.2 MMOL/L Anion Gap 6 Blood Urea Nitrogen 52 MG/DL Creatinine 2.14 MG/DL Estimated GFR/1.73 m2 23 ML/MIN BUN/Creatinine Ratio 24.3 Glucose Level 105 MG/DL Calcium Level 8.7 MG/DL Magnesium Level 2.0 MG/DL Total Bilirubin 0.5 MG/DL Aspartate Amino Transf (AST/SGOT) 13 U/L Alanine Aminotransferase (ALT/SGPT) 12 U/L Alkaline Phosphatase 86 IU/L Total Protein 6.1 G/DL Albumin 2.6 G/DL Globulin 3.5 G/DL Albumin/Globulin Ratio 0.7 Chemistry Comments Test 03/18/25 12:27 Glucometer 173 mg/dl Advise on discharge: - follow up with Dr. Jaramillo, Cardiology, outpatient for carotid artery stenting and common femoral artery stenting - follow up with Dr. Foley,, nephrology outpatient - continue antibiotics as prescribed - continue wound care - follow up with PCP in 1 week, repeat labs - home care nurse to monitor vitals regularly at home *Problems/Diagnosis: (1) Venous insufficiency Status: Acute (2) Leg edema Status: Acute (3) Cellulitis Status: Acute Total Time Spent on D/C: Up to 30 Minutes Date of Service: Mar 18, 2025 Billing Provider: NEGRA KERN MD, GAURAV, RES Mar 18, 2025 17:10
== END 2025-03-18 14:50 | disposition home health service (06) | DRG 291 ==
LOC: ER 11:58 → ED HOLD 15:54 → PCU 3S 19:51
PROVIDERS: ADMIT Family Medicine; ATTEND Family Medicine
PROC: BW211ZZ Computerized Tomography (CT Scan) of Abdomen and Pelvis using Low Osmolar Contrast (ICD-10-PCS; principal; 2025-03-15)
DX: I13.0 Hypertensive heart and chronic kidney disease with heart failure and stage 1 through stage 4 chronic kidney disease, or unspecified chronic kidney disease (principal); I50.33 Acute on chronic diastolic (congestive) heart failure; L03.116 Cellulitis of left lower limb; E24.9 Cushing's syndrome, unspecified; L03.115 Cellulitis of right lower limb; N18.4 Chronic kidney disease, stage 4 (severe); N39.0 Urinary tract infection, site not specified; E78.5 Hyperlipidemia, unspecified; E66.01 Morbid (severe) obesity due to excess calories; E11.51 Type 2 diabetes mellitus with diabetic peripheral angiopathy without gangrene; E11.65 Type 2 diabetes mellitus with hyperglycemia; E11.22 Type 2 diabetes mellitus with diabetic chronic kidney disease; I65.23 Occlusion and stenosis of bilateral carotid arteries; E03.9 Hypothyroidism, unspecified; Z79.82 Long term (current) use of aspirin; Z79.4 Long term (current) use of insulin; Z79.899 Other long term (current) drug therapy; Z86.73 Personal history of transient ischemic attack (TIA), and cerebral infarction without residual deficits; Z68.38 Body mass index [BMI] 38.0-38.9, adult
CPT/HCPCS: 36415; 71045; 74176; 80053; 80061; 81001; 82024; 82550; 82553; 82607; 82728; 82948; 83540; 83550; 83605; 83735; 83880; 84145; 84439; 84443; 84484; 85025; 85610; 85730; 87040; 87077; 87081; 87088; 87186; 93005; 93970; 96374; 97110; 97161; 97530; 99285; A4615; A6258; G0378; J0690; J0696; J1644; J1756; J1815; J1938; J7040; J7050

== ENCOUNTER 2025-04-25 13:40 | Day surgery (SDC) | payer MEDICARE ==
[2025-04-22 11:02] LABS: APTT 29 SECONDS (22-32); INR 1.0 INR
[2025-04-22 11:21] LABS: CHOL/HDL RATIO 3.8 (0.00-4.99); CREATININE 2.34 MG/DL (0.40-0.90); LDL CHOLESTEROL 107 MG/DL (50-100); TOTAL CARBON DIOXIDE 28.1 MMOL/L (24-32); eGFR 20 ML/MIN
[2025-04-22 11:24] LABS: MEAN PLATELET VOLUME 8.7 FL (7.4-10.4); RED CELL DISTRIBUTION WIDTH 14.4 % (11.5-14.5)
[~2025-04-25] VITALS: Ht 157.5 cm; Wt 86.4 kg
[2025-04-25] VITALS (7 sets, daily range): BP systolic 174–226; BP diastolic 68–84; PULSE 71–99; RESP 16; TEMP 97.8; O2SAT 96–100
[~2025-04-25 13:40] MED LIST changes: -AMLO10TA PO; +AMLO10TA13 PO; +ASPI-611 PO; +ATOR20TA PO; -ATOR20TA66 PO; +BRIN8DRO2 EACHEYE; +EMPA10TA PO; +FERR324T4 PO; +FURO20TA4 PO; -LABE100T8 PO; +LACT1CAP26 PO; -LATA2.5D14 EACHEYE; +LATA2.5D7 EACHEYE; +LINA5TAB4 PO; -LOSA50TA64 PO; -PRED5DRO23; -PROC-8 PO; +SPIR25TA5 PO; +TOBR5DRO7 EACHEYE; +VALS320T17 PO
--- NOTE | 2025-04-25 14:08 | ELECTROCARDIOGRAPH REPORT ---
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 XOCHILT Borjas Measurements Intervals Hale Rate: 70 P: 46 TN: 144 QRS: 66 QRSD: 94 T: 63 QT: 431 QTc: 466 Interpretive Statements Sinus rhythm Electronically Signed On 04-25-2025 16:40:[address] XOCHILT Borjas Please click the below link to view image of tracing.
[2025-04-25] MEDS ORDERED: AMLO2.5T5 PO (14:33)
[2025-04-25] MEDS ORDERED: ATOR-429 PO (14:44)
[2025-04-25] MEDS ORDERED: LOSA50TA64 PO (14:44)
[2025-04-25] MEDS ORDERED: VITD400T PO (14:44)
[2025-04-25] MEDS ORDERED: BACL10TA2 PO (14:44)
[2025-04-25] MEDS ORDERED: INSU100C4 SQ (14:44)
[2025-04-25] MEDS ORDERED: FERR-106 PO (14:44)
[2025-04-25] MEDS ORDERED: SPIR25TA5 PO (14:44)
[2025-04-25] MEDS ORDERED: CEFD300C17 PO (14:44)
[2025-04-25] MEDS ORDERED: FURO40TA4 PO (14:44)
[2025-04-25] MEDS ORDERED: phenylephrine 10mg/ml inj. ONE (15:13)
[2025-04-25] MEDS ORDERED: heparin 1,000unit/ml 10ml vial 0 ML ONE (15:13)
[2025-04-25] MEDS ORDERED: atropine 0.1mg/ml 10ml syringe ONE (15:13)
[2025-04-25] MEDS ORDERED: DOPamine 400mg/D5W 250ml 0 ML IV ONE (15:13)
[2025-04-25] MEDS ORDERED: LIDOcaine 1% 30ml preserv. free vial ONE (15:13)
[2025-04-25] MEDS ORDERED: hydrALAZINE 20mg/ml inj. ONE (16:58)
[2025-04-25] MEDS ORDERED: fentaNYL/PF 50MCG/1 ML 2ML syringe ONE (17:12)
[2025-04-25] MEDS ORDERED: HYDROcodone/acetaminophen 5mg/325mg tablet PO PRN (18:05)
[2025-04-25] MEDS ORDERED: HYDROcodone/acetaminophen 10/325mg tab PO PRN (18:05)
[2025-04-25] MEDS: hydrALAZINE 20mg/ml inj. IV PRN (18:08)
[2025-04-25] MEDS: ondansetron/PF 4mg/2ml inj ONE (18:39)
--- NOTE | 2025-05-15 20:06 | CARDIOLOGY REPORT ---
DATE OF SERVICE: 04/25/2025 DICTATING PHYSICIAN: Dona Jaramillo MD CAROTID ANGIOGRAM DATE OF STUDY: 04/25/2025 PROCEDURE: Selective right common, internal and external carotid artery angiography. INDICATION: Carotid stenosis. PHYSICIAN: Roberto Jaramillo M.D. DESCRIPTION OF PROCEDURE: After informed consent was obtained, the patient was brought to the lab where she was prepped and draped in the usual sterile fashion. A 6-Turkish sheath was inserted into the right femoral artery. Thereafter, using a Identyx 2 catheter, the catheter was manipulated to engage the right common carotid artery and selective angiography of the right common, internal and external carotid was performed. Hemostasis was then obtained with a Perclose device. FINDINGS: No significant stenosis in the common carotid artery. The internal carotid artery has a 20-30% stenosis. IMPRESSION: * Please note that limited contrast was used. * Mild 20% stenosis of the right internal carotid artery by angiography. Dona Jaramillo MD TID: [id number] RECEIPT: [id number] ZAIRA/MANAS
== END 2025-04-25 19:15 | disposition home or self-care (01) ==
LOC: SSTAY O 13:40
PROVIDERS: ATTEND Student in an Organized Health Care Education/Training Program
DX: I65.21 Occlusion and stenosis of right carotid artery (principal); I10 Essential (primary) hypertension; E11.9 Type 2 diabetes mellitus without complications; E78.00 Pure hypercholesterolemia, unspecified; J45.909 Unspecified asthma, uncomplicated; I73.9 Peripheral vascular disease, unspecified; Z86.73 Personal history of transient ischemic attack (TIA), and cerebral infarction without residual deficits; Z79.4 Long term (current) use of insulin; Z79.82 Long term (current) use of aspirin; Z79.899 Other long term (current) drug therapy; Z88.8 Allergy status to other drugs, medicaments and biological substances
CPT/HCPCS: 36223; 80048; 80061; 82948; 83695; 85025; 85610; 85730; 93005; A6258; C1760; J0360; J1644; J2003; J2371; J2405; J7030; Q9967; Z7610; 36222; J0461; J1265; J3010